=== PATIENT | female | born 1945 | race Caucasian/White ===

== ENCOUNTER → 2017-02-28 | Outpatient (CLI) | payer MEDICARE ==
[~2017-02-28] MED LIST: CLARITIN10 MG PO; COUMADIN ** 9/62 MG PO; COUMADIN **IA2.5 MG PO; DULCOLAX10 MG R; DULCOLAX5 MG PO; FEOSOL325 MG PO; HYGROTON25 MG PO; K-TAB ER20 MEQ PO; LANOXIN (DIGI125 MCG PO; LIPITOR20 M1 PO; METOPROLOL SUCC25 MG PO; MILK OF MA400 MG/5 M PO; PEPCID20 MG PO; REQUIP2 MG PO; TYLENOL325 MG PO
== END | disposition disaster alternative care site (69) ==
LOC: GAMB 08:43
DX: R53.1 Weakness (principal); R42 Dizziness and giddiness; R00.1 Bradycardia, unspecified; Z79.82 Long term (current) use of aspirin; Z79.01 Long term (current) use of anticoagulants; Z79.899 Other long term (current) drug therapy
CPT/HCPCS: A0425; A0427

== ENCOUNTER → 2017-03-22 | Outpatient (CLI) | payer MEDICARE ==
--- NOTE | ~2017-03-22 | PUL ---
[facility] AGE[facility] 71 Y [address] ROOM: [place] [id number] LOCATION: [facility] ADMIT DATE: 03/22/2017 Pulmonary DISCHARGE DATE: FAMILY PHYSICIAN: Elinor Ferrera MD ATTENDING PHYSICIAN: Dustin Johnson NAME OF PROCEDURE: Sleep study PROCEDURE DATE: 03/22/17 TECH: Becky Burt, STRAPPING MACHINE OPERATOR TEST #: [facility] [place] [id number] TECHNICAL PARAMETERS: The patient was studied using International 10/20 measuring system. While the patient was studied, there was continuous monitoring of EEG (8 leads), EOG (2 leads), EKG (3 leads), submental EMG (3 leads), tibial (4 leads), respiratory inductive plethysmography (RIP) for thoracic and abdominal effort, oral and nasal airflow with a thermocouple and pressure transducer, and oximetry. The marine diesel technician also performed visual and auditory observations noting things like body position, patient's status, breath sounds, artifact, snoring level and patient comments. Continuous sound was monitored using a 2-way speaker system and video monitoring was performed using an infrared camera. Review of the entire study was performed epoch by epoch utilizing a single epoch and multiple epoch capability sleep system. MEDICAL HISTORY: Patient is a 71-year-old woman with daytime sleepiness and snoring. SLEEP STAGE SUMMARY: The patient was studied for 402 minutes of which she slept 247 minutes. She fell asleep in 20 minutes and slept for 60% of the night. Sleep architecture revealed a decline in slow wave sleep. RESPIRATORY SUMMARY: This study was done to titrate CPAP which was started at 6 cm. Best level of control occurred with CPAP at 10 cm. EKG SUMMARY: No dysrhythmias were noted. LIMB MOVEMENT SUMMARY: Periodic limb movements were noted. These may be clinically relevant based on their number. SUMMARY: Obstructive sleep apnea. Suggest CPAP at 10cm and consider treatment for the leg movements. PLAN: The patient will receive results from the ordering provider. PATIENT'S NAME: DAMARIS MONCADAA Balbina [facility] AGE: 71 Y [address] ROOM: [place] [id number] LOCATION: [facility] ADMIT DATE: 03/22/2017 Pulmonary DISCHARGE DATE: FAMILY PHYSICIAN: Elinor Ferrera MD ATTENDING PHYSICIAN: Dustin Johnson MD HAYLEY LAWRENCE/ /[id number] dtt: 04/03/17 1010 Maribel David E. dtd: 03/28/17 1153
== END | disposition disaster alternative care site (69) ==
LOC: GSLP 20:27
DX: G47.33 Obstructive sleep apnea (adult) (pediatric) (principal)